=== PATIENT | female | born 1980 | race Caucasian/White ===

== ENCOUNTER 2016-10-11 23:22 | Emergency (ER) | payer OTHER ==
[2016-10-12] MEDS ORDERED: NS 0.9% 1000 ML* 1,000 ML IV ONE (01:36)
[2016-10-12 02:18] LABS: Hematocrit 36 % (35-47); Mean Corpuscular HGB Conc 34 g/dl (31-36); Mean Corpuscular Hemoglobin 29 pg (27-31); Mean Corpuscular Volume 87 fL (80-97); Mean Platelet Volume 9 um3 (7.4-10.4); Red Blood Count 4.12 10^6/ul (4.0-5.4); Red Cell Distribution Width 13 % (10.5-15); White Blood Count 6.8 10^3/ul (3.5-10.8)
[2016-10-12 02:28] LABS: BUN/Creatinine Ratio 22.6 (8-20); Calcium 9.1 mg/dL (8.6-10.3); EGFR African American 139.3 (>60); EGFR Non-African American 108.3 (>60); Globulin 2.7 g/dL (2-4); Potassium 3.6 mmol/L (3.5-5.0); Total Bilirubin 0.7 mg/dL (0.2-1.0); Total Protein 6.7 g/dL (6.4-8.9)
[2016-10-12] MEDS ORDERED: Iohexol 300* (CONTRAST) 10 ML SDV IV ONE (02:33)
[2016-10-12] MEDS ORDERED: Iohexol 350* (CONTRAST) 500 ML MDV IV ONE (02:45)
[2016-10-12 03:16] VITALS: BP 109/67
--- NOTE | 2016-10-12 04:27 | ED ---
Tameka Guerrero Rebecca, scribed for Maria R Medina MD on 10/12/16 at 0114 . Respiratory - HPI Summary HPI Summary: Pt is a 35 y/o F who presents to ED c/o productive cough bringing up blood. Reports that 5 days ago (10/07/2016) she had one episode of a blood-tinged cough , bringing up approximately 1 teaspoon. Tonight, she had a continuous bout lasting 30 minutes of bloodied cough. Approximates blood to be less than 1/4 cup with small clots. Sx aggravated and alleviated by nothing. Additionally c/o associated CP, currently ranked 4/10. Denies fever, chills and calf cramping. Was evaluated by her PCP 4 days ago, where a CXR was done which revealed hyperexpansion of the lungs, per pt. Reports last week she traveled to [place] , but was not sitting for 5 hours. Denies TB exposure. No FHx DVT, PE. - History of Current Complaint Chief Complaint: EDUpperRespComplaint Stated Complaint: COUGHING UP BLOOD LAST 20 MINUTES Time Seen by Provider: 10/12/16 01:13 Hx Obtained From: Patient Onset/Duration: Gradual Onset, Still Present Initial Severity: Moderate Current Severity: Moderate Pain Intensity: 4 Character: Cough (Productive) - Blood Sputum Amount: Small Sputum Color: Red (Blood), Small Clots Aggravating Factor(s): Nothing Alleviating Factor(s): Nothing Associated Signs and Symptoms: Chest Pain with Cough - Allergy/Home Medications Allergies/Adverse Reactions: Allergies Allergy/AdvReac Type Severity Reaction Status Date / Time Codeine AdvReac Nausea And Verified 10/12/16 01:45 Vomiting PMH/Surg Hx/FS Hx/Imm Hx Endocrine/Hematology History: Denies: Hx Diabetes, Hx Thyroid Disease Cardiovascular History: Denies: Hx Hypertension Respiratory History: Denies: Hx Asthma, Hx Chronic Obstructive Pulmonary Disease (COPD) GI History: Denies: Hx Ulcer - Surgical History Surgery Procedure, Year, and Place: D&C Infectious Disease History: Denies: Hx Hepatitis, Hx Human Immunodeficiency Virus (HIV), Traveled Outside the in Last 30 Days - Family History Known Family History: Positive: Respiratory Disease - son with asthma, Other - No FHx DVT, PE - Social History Alcohol Use: None Substance Use Type: Reports: None Smoking Status (MU): Never Smoked Tobacco Have You Smoked in the Last Year: No Review of Systems Negative: Fever, Chills Positive: Chest Pain - /10 Positive: Cough - with blood Positive: Other - Denies calf pain All Other Systems Reviewed And Are Negative: Yes Physical Exam - Summary Physical Exam Summary: General: Well appearing, no pain distress Skin: Warm, Skin Color Reflects Adequate Perfusion, Dry Eyes: EOMI, TRISTA ENT: Pharynx normal, TMs normal Neck: Supple, nontender Respiratory: CTA, breath sounds present, no rhonchi, no wheezes, no rales Cardiovascular: RRR, no murmur, no rub, no gallop Abdomen: Soft, nontender, Non-distended, no guarding, no rebound Bowel: Present Musculoskeletal: SHARRI, No edema Neuro: Sensory/motor intact, A&Ox3, CN intact 2-12 Psych: Affect/mood appropriate Triage Information Reviewed: Yes Vital Signs On Initial Exam: Initial Vitals Temp Pulse Resp BP Pulse Ox 98.6 F 74 18 132/68 100 10/11/16 23:44 10/11/16 23:44 10/11/16 23:44 10/11/16 23:44 10/11/16 23:44 Vital Signs Reviewed: Yes Diagnostics - Vital Signs Vital Signs Temp Pulse Resp BP Pulse Ox 10/11/16 23:44 98.6 F 74 18 132/68 100 - Laboratory Lab Results: Lab Results 10/12/16 10/12/16 Range/Units 02:00 02:00 WBC 6.8 (3.5-10.8) 10^3/ul RBC 4.12 (4.0-5.4) 10^6/ul Hgb 12.0 (12.0-16.0) g/dl Hct 36 (35-47) % MCV 87 (80-97) fL MCH 29 (27-31) pg MCHC 34 (31-36) g/dl RDW 13 (10.5-15) % Plt Count 124 L (150-450) 10^3/ul MPV 9 (7.4-10.4) um3 Neut % (Auto) 54.4 (38-83) % Lymph % (Auto) 33.9 (25-47) % Davison % (Auto) 5.8 (1-9) % Eos % (Auto) 4.6 (0-6) % Baso % (Auto) 1.3 (0-2) % Absolute Neuts (auto) 3.7 (1.5-7.7) 10^3/ul Absolute Lymphs (auto) 2.3 (1.0-4.8) 10^3/ul Absolute Monos (auto) 0.4 (0-0.8) 10^3/ul Absolute Eos (auto) 0.3 (0-0.6) 10^3/ul Absolute Basos (auto) 0.1 (0-0.2) 10^3/ul Absolute Nucleated RBC 0.01 10^3/ul Nucleated RBC % 0.1 Sodium 135 (133-145) mmol/L Potassium 3.6 (3.5-5.0) mmol/L Chloride 107 (101-111) mmol/L Carbon Dioxide 22 (22-32) mmol/L Anion Gap 6 (2-11) mmol/L BUN 14 (6-24) mg/dL Creatinine 0.62 (0.51-0.95) mg/dL Est GFR ( Amer) 139.3 (>60) Est GFR (Non-Af Amer) 108.3 (>60) BUN/Creatinine Ratio 22.6 H (8-20) Glucose 98 (70-100) mg/dL Calcium 9.1 (8.6-10.3) mg/dL Total Bilirubin 0.70 (0.2-1.0) mg/dL AST 20 (13-39) U/L ALT 17 (7-52) U/L Alkaline Phosphatase 45 (34-104) U/L Total Protein 6.7 (6.4-8.9) g/dL Albumin 4.0 (3.2-5.2) g/dL Globulin 2.7 (2-4) g/dL Albumin/Globulin Ratio 1.5 (1-3) Result Diagrams: 10/12/16 02:00 10/12/16 02:00 Lab Statement: Any lab studies that have been ordered have been reviewed, and results considered in the medical decision making process. - CT CTA Chest CT Interpretation Completed By: Radiologist - No evidence of pathology - EKG 0140 Cardiac Rate: NL - 69 bpm EKG Rhythm: Sinus Rhythm Re-Evaluation - Re-Evaluation First Eval Re-Evaluation Time: 04:21 Change: Improved Comment: Discussed labs and radiology findings. Pt will be D/C to home. Disposition - Course Course Of Treatment: CTA and labs negative. vitals absolutely stable, ekg normal , mild tightness with deep breath. Pt has f/u with pft's for asthma close f/u - Diagnoses Provider Diagnoses: Hemoptysis Discharge - Discharge Plan Condition: Stable Disposition: HOME Patient Education Materials: Hemoptysis (ED) Referrals: Marcela Badillo NP [Primary Care Provider] - 3 Days Additional Instructions: Return to ED for any returning or worsening symptoms. The documentation as recorded by the Tameka reeves Rebecca accurately reflects the service I personally performed and the decisions made by me, Maria R Medina MD.
--- NOTE | 2016-10-12 09:29 | RAD ---
INDICATION: Hemoptysis. Chest pain. Dyspnea. COMPARISON: October 08, 2016 chest radiograph. TECHNIQUE: Multidetector CT images were obtained from the lung apices to the upper abdomen with 60 mL Omnipaque 350 IV contrast. Pulmonary angiogram protocol. Multiplanar reformation including with maximum intensity projection. REPORT: 0.5 x 0.4 x 0.8 cm region of pleural or subpleural soft tissue density at the medial segment of the RIGHT middle lobe approximating the minor fissure. No additional focal pulmonary lesions evident. Elevated lung volumes and rarefaction of interstitial markings. Negative for pleural effusion or pneumothorax. Negative for thoracic lymphadenopathy, cardiomegaly, pericardial effusion. Normal diameter thoracic aorta without dissection. No filling defects are identified from the main to the subsegmental pulmonary arteries to indicate presence of a pulmonary embolism. Unremarkable Limited images through the upper abdomen. Negative for suspicious osseous lesions. IMPRESSION: 1. No evidence for pulmonary embolism. 2. No evidence for pneumonia. 3. Relative low suspicion region of noncalcified soft tissue density nodularity along the RIGHT minor fissure with a linear component in the transverse dimension most suspicious for pleural parenchymal scarring. Given the low volume of the lesion characterization with PET scan likely not possible. Consider reassessment with noncontrast chest CT in 3 months. 4. Emphysema.
--- NOTE | 2016-10-12 15:13 | ED ---
Progress - Progress Note Progress Note: just spoke with pts , requesting that if she has another hemoptysis event in which she cough up blood especially if its near the 1/2 cup amount that he bring her back to the hospital. I told them I was following up because I realized that while the CTA I did last night rules out PE and other lung diseases a direct look at the bronchi may be needed with a bronchoscope and that they needed to make an appointment with a tester rocket engine. --- Re-Evaluation - Re-Evaluation First Eval Re-Evaluation Time: 04:21 Change: Improved Comment: Discussed labs and radiology findings. Pt will be D/C to home. Course/Dx - Course Course Of Treatment: CTA and labs negative. vitals absolutely stable, ekg normal , mild tightness with deep breath. Pt has f/u with pft's for asthma close f/u - Diagnoses Provider Diagnoses: Hemoptysis
== END 2016-10-12 04:43 | disposition home or self-care (01) ==
LOC: ED 23:22
DX: R04.2 Hemoptysis (principal); R07.9 Chest pain, unspecified; R05 Cough
CPT/HCPCS: 36415; 71275; 80053; 85025; 93005; 96360; 99282; Q9967